=== PATIENT | male | born 1955 | race Caucasian/White ===

== ENCOUNTER 2020-03-14 08:00 | Day surgery (SDC) | payer MEDICARE, BC ==
[~2020-03-14] VITALS: Ht 188 cm; Wt 81.8 kg
[~2020-03-14 08:00] MED LIST: AMITRIPTYLINE H10 M1 PO; ASPIR-LOW81 MG PO; ASPIR-LOX325 MG PO; CLOPIDOGREL PO; DARVOCET N 101 UDTAB PO; DARVOCET-N-101 UDTAB PO; FLEXERIL5 MG PO; FLOMAX PO; GABAPENTIN300 M1 PO; ISMO 20MG20 MG PO; LOPRESSOR 225 MG/TAB PO; MOTRIN 800800 MG/TAB PO; NIASPAN500 MG PO; NITROSTAT0.4 MG/TAB SL; SYMBICORT1 AE1; TRAMADOL50 MG PO; ULTRAM100 MG PO; VENTOLIN0.09 MG IH; ZOCOR PO
[2020-03-14] MEDS ORDERED: PERCOCET 325 MG1 TA2 PO ×2 (08:21→12:42)
[2020-03-14] MEDS ORDERED: PROTONIX 40MG T40 MG PO (08:22)
[2020-03-14] MEDS ORDERED: PROVENTIL0.09 MG/A1 IH (08:22)
[2020-03-14] MEDS ORDERED: INFLUENZA VACCINE (08:23)
[2020-03-14 08:53] VITALS: BP 131/81; PULSE 81; TEMP 97.7
[2020-03-14 08:56] LABS: HEMATOCRIT 45.6 % (42.0-52.0); MEAN CELL VOLUME 95 fl (80.0-100.0); MEAN CORPUSCULAR HEMOGLOBIN 31 pg (27.0-31.0); MEAN CORPUSCULAR HGB CONC 33 g/dl (33.0-37.0); MEAN PLATELET VOLUME 8.6 fl (7.4-10.4); PLATELET COUNT 241 K/mm3 (130-400); RED BLOOD COUNT 4.81 M/mm3 (4.20-5.60); REDCELL DISTRIBUTION WIDTH-CV 12.5 % (11.5-14.5)
[2020-03-14 13:20] VITALS: BP 134/84; PULSE 77
--- NOTE | 2020-03-14 13:20 | NUR ---
PATIENT TRANSPORTED PER CART TO BAY 6 ACCOMPANIED BY PACU STAFF. MONITORS APPLIED. VSS ON ROOM AIR. DRESSING TO ABD REVIEW. CDI. ABD BINDER IN PLACE. PATIENT STATES HAS DISCOMFORT. RESPIRATIONS CONTINUED AT 10. DENIES NAUSEA. 1324 PATIENT GIVEN SPRITE REQUESTED.
[2020-03-14 13:30] VITALS: BP 140/83; PULSE 881; TEMP 97.4
--- NOTE | 2020-03-14 13:30 | NUR ---
VSS ON ROOM AIR. PATIENT DRINKS SPRITE WITHOUT PROBLEMS. PATIENT STATES TUMMY IS BETTER WITH DRINKING SPRITE. REQUESTS MORE SPRITE AND APPLESAUCE. PATIENT STATES STILL HAVING ABD DISCOMFORT. RESPIRATIONS 12. 1335 PATIENT GIVEN SPRITE AND APPLESAUCE.
[2020-03-14 13:45] VITALS: BP 124/81; PULSE 85
--- NOTE | 2020-03-14 13:45 | NUR ---
VSS ON ROOM AIR. PATIENT TOLERATES APPLESAUCE WITHOUT PROBLEMS. DRINKING FLUIDS WITHOUT PROBLEMS. PATIENT RATES DISCOMFORT NOW 08/30. 1354 PATIENT GIVEN PERCOCET 1 TAB PO BY MOUTH. PATIENT STATES HE TAKES PERCOCET REGULARLY THROUGHOUT THE DAY.
[2020-03-14 14:00] VITALS: BP 177/76; PULSE 81
--- NOTE | 2020-03-14 14:25 | NUR ---
1425 IV SITE DC'D WITH CATHETER TIP INTACT. PRESSURE AND BANDAGE APPLIED. DISCHARGE INSTRUCTIONS GIVEN VERBAL AND DISCHARGE PACKET GIVEN TO PATIENT. QUESTIONS ANSERED AND PATIENT VOICED UNDERSTANDING. PATIENT AMBULATED TO RESTROOM. VOIDS URINE WITHOUT PROBLEMS. PATIENT CHANGES INTO STREET CLOTHES. 1430 PATIENT DISCHARGED PER WHEELCHAIR ACCOMPANIED BY AMB STAFF TO POV DRIVEN BY A FRIEND.
--- NOTE | 2020-03-14 15:13 | NUR ---
VSS ON ROOM AIR. PATIENT RESTING AND DOES NOT VOICE CONCERNS AT THIS TIME. AWAITING FRIENDS ARRIVAL AT HOSPITAL TO TAKE HIM HOME.
== END 2020-03-14 11:43 | disposition home or self-care (01) ==
LOC: SDCO 08:00
PROVIDERS: Surgery
DX: K43.2 Incisional hernia without obstruction or gangrene (principal); Z79.82 Long term (current) use of aspirin; I25.10 Atherosclerotic heart disease of native coronary artery without angina pectoris; F32.9 Major depressive disorder, single episode, unspecified; G89.29 Other chronic pain; J43.9 Emphysema, unspecified; E78.00 Pure hypercholesterolemia, unspecified; K21.9 Gastro-esophageal reflux disease without esophagitis; I10 Essential (primary) hypertension; K22.2 Esophageal obstruction; Z90.49 Acquired absence of other specified parts of digestive tract; Z87.891 Personal history of nicotine dependence; Z88.1 Allergy status to other antibiotic agents; Z88.8 Allergy status to other drugs, medicaments and biological substances
CPT/HCPCS: C1781; J0360; J0690; J1100; J1885; J2405; J2704; J2710; J3010; J7120